=== PATIENT | female | born 1955 | race Caucasian/White ===

== ENCOUNTER 2019-05-10 09:31 | Emergency (ER) | payer MEDICARE ==
[~2019-05-10] VITALS: Ht 162.6 cm; Wt 80.6 kg
[2019-05-10 10:45] VITALS: BP 124/80
== END 2019-05-10 12:10 | disposition home or self-care (01) ==
LOC: ED 12:03
DX: R07.1 Chest pain on breathing (principal)
CPT/HCPCS: 36415; 71046; 80053; 82375; 85025; 93005; 99284

== ENCOUNTER → 2019-11-08 | Outpatient (CLI) | payer MEDICARE | END | disposition home or self-care (01) | LOC: CFH 11:02 | PROVIDERS: ATTEND Internal Medicine Cardiovascular Disease | DX: I08.3 Combined rheumatic disorders of mitral, aortic and tricuspid valves (principal) | CPT/HCPCS: 78452; 93017; 93306; A9502 ==

== ENCOUNTER 2019-12-22 14:54 | Outpatient (CLI) | payer MEDICARE ==
[2019-12-22] MEDS ORDERED: GADOTERATE 7.5 MMOL/15 ML SYR ONE (16:00)
== END 2019-12-22 23:59 | disposition home or self-care (01) ==
LOC: RAD 14:54
PROVIDERS: ATTEND Internal Medicine
DX: R20.2 Paresthesia of skin (principal); H53.9 Unspecified visual disturbance
CPT/HCPCS: 70553; A9575

== ENCOUNTER 2019-12-26 14:32 | Outpatient (CLI) | payer MEDICARE ==
[2019-12-26] MEDS ORDERED: GADOTERATE 7.5 MMOL/15 ML VIAL ONE (15:30)
== END 2019-12-26 23:59 | disposition home or self-care (01) ==
LOC: RAD 14:32
PROVIDERS: ATTEND Internal Medicine
DX: D32.0 Benign neoplasm of cerebral meninges (principal); R20.2 Paresthesia of skin; G93.89 Other specified disorders of brain; H47.49 Disorders of optic chiasm in (due to) other disorders; H53.9 Unspecified visual disturbance
CPT/HCPCS: 70543; 70544; A9575

== ENCOUNTER 2020-04-04 07:22 | Outpatient (CLI) | payer MEDICARE ==
[2020-04-04] MEDS ORDERED: GADOTERATE 7.5 MMOL/15 ML SYR ONE (09:14)
== END 2020-04-04 23:59 | disposition home or self-care (01) ==
LOC: CFH 07:22
PROVIDERS: ATTEND Physician Assistant Surgical
DX: R22.0 Localized swelling, mass and lump, head (principal); M47.812 Spondylosis without myelopathy or radiculopathy, cervical region; R20.2 Paresthesia of skin; M48.02 Spinal stenosis, cervical region; M43.8X2 Other specified deforming dorsopathies, cervical region
CPT/HCPCS: 70480; 70553; 72141; A9575

== ENCOUNTER → 2020-12-05 | Outpatient (CLI) | payer MEDICARE ==
[~2020-12-05] MED LIST: GADOTERATE 10 MMOL/20ML SYR ONE
== END | disposition home or self-care (01) ==
LOC: CFH 15:01
PROVIDERS: ATTEND Neurological Surgery
DX: D32.0 Benign neoplasm of cerebral meninges (principal); G93.89 Other specified disorders of brain
CPT/HCPCS: 70553; A9575